=== PATIENT | female | born 1950 | race Caucasian/White ===

== ENCOUNTER 2022-05-08 22:24 | Emergency (ER) | payer MEDICARE, SELFPAY ==
--- NOTE | ~2022-05-08 | CT_ITS ---
EXAMINATION: CT ABDOMEN AND PELVIS WITHOUT CONTRAST CLINICAL INFORMATION: Lower back pain. Left hip pain. COMPARISON: None TECHNIQUE: Multidetector volumetric imaging was performed from the superior aspect of the liver through the pubic symphysis. Sagittal and coronal reformatted images were obtained on the technologist's workstation. This CT examination was performed using dose optimization techniques as appropriate, variously including the following: *Automated exposure control *Adjustment of mA and/or kV according to patient size (this includes techniques or standardized protocols for targeted exams where dose is matched to indication/reason for exam; i.e. extremities or head) *Use of iterative reconstruction technique DLP: 696 mGy-cm FINDINGS: LUNG BASES: The visualized lung bases are unremarkable. LIVER, GALLBLADDER, AND BILIARY TREE: The liver is normal in size, shape, and attenuation. No focal hepatic lesion or biliary ductal dilatation is present. The gallbladder is unremarkable with no evidence of radiopaque gallstones, gallbladder wall thickening, or obvious pericholecystic inflammatory changes. PANCREAS: Unremarkable. SPLEEN: Unremarkable. ADRENAL GLANDS: Normal appearance of the left adrenal gland. The right adrenal gland is not seen. Surgical clips are seen in this area. KIDNEYS AND URETERS: The kidneys are normal in size, shape, and attenuation. No hydronephrosis, hydroureter, or calculi seen. No perinephric stranding. BLADDER: Unremarkable. GASTROINTESTINAL TRACT: The stomach is unremarkable. Normal caliber small bowel. No obstruction. Normal appendix. Colonic diverticulosis which is greatest at the sigmoid colon. No diverticulitis. No free air or free fluid. ABDOMINAL WALL: Evidence of previous right inguinal hernia repair. No abdominal wall hernias seen at this time . LYMPH NODES: Normal. VASCULAR: Normal caliber aorta with mild atherosclerotic calcification. PELVIC VISCERA: Uterus not seen. No adnexal mass. OSSEOUS STRUCTURES: No acute or suspicious osseous abnormality. Total left hip arthroplasty in appropriate positioning without evidence of failure. Mild degenerative change along the pubic symphysis. Transitional anatomy at the lumbosacral junction. There is vacuum disc phenomenon at L5-S1. Mild degenerative changes throughout with small endplate osteophytes. CT/CT abdomen pelvis wo IV con IMPRESSION: 1. No acute findings in the abdomen or pelvis. No inflammatory changes. 2. Colonic diverticulosis without diverticulitis. Fleischner guidelines were followed.
[2022-05-08 22:32] VITALS: BP 156/86; PULSE 82
[2022-05-08 22:38] VITALS: BP 136/73; PULSE 84; RESP 18; TEMP 36.3; O2SAT 97; BMI 31.1
[2022-05-09 00:38] VITALS: BP 143/114; PULSE 64; RESP 19; TEMP 36.8; O2SAT 98
--- NOTE | 2022-05-09 00:39 | ED.EXTPRO ---
HPI - Extremity Problem General Chief complaint: Extremity Problem Stated complaint: Back pain Time Seen by Provider: 05/09/22 00:37 Source: patient Mode of arrival: ambulatory Limitations: no limitations History of Present Illness HPI Narrative: Patient with history of osteoporosis bilateral hip replacement ambulatory without any assistance notice 3 days of pain in left groin area and lower back no history of injury no fall patient has difficulty in getting up from the seat initially now has pain even when she walks no paresthesia no leg weakness no abdominal pain no rash Related Data Previous Rx's Medication Instructions Recorded tramadol 50 mg tablet 50 mg PO Q8H PRN pain #20 tabs 05/09/22 Allergies Allergy/AdvReac Type Severity Reaction Status Date / Time bupropion [From Wellbutrin] Allergy Nausea and Verified 05/08/22 22:44 Vomiting prochlorperazine Allergy Facial Verified 05/08/22 22:43 [From Compazine] Swelling Review of Systems Review of Systems: Yes all other systems are reviewed and are negative [facility] Social History Social History Alcohol intake: never Smoked in Last 30 Days: Yes Use of substances other than those prescribed or required for medical reasons: No Advance Directives: No Physical Exam Vital Signs: Vital Signs: Last Vital Signs Temp 98.2 F 05/09/22 00:38 Pulse 69 05/09/22 03:16 Resp 18 05/09/22 03:16 BP 119/64 05/09/22 03:16 Pulse Ox 97 05/09/22 03:16 O2 Del Method 05/09/22 03:16 BMI result Body Mass Index 31.1 Appearance: Alert. Oriented X3. No acute distress. Eyes: No pallor or icterus ENT: Pharynx normal. Oral Mucosa moist Neck: Normal inspection. Neck supple. CVS: Normal heart rate and rhythm. Pulses normal. Respiratory: No respiratory distress. Equal air entry bilateral, no wheezing/rales/rhonchi Abdomen: Soft and nontender. Bowel sounds are present, no mass palpable, no CVA tenderness Skin: Skin warm and dry. Normal skin color. Normal skin turgor. Extremities: No lower extremity edema. No calf tenderness, hip good range of movement tender in the groin area back: Diffuse tenderness lower lumbar area Neuro: Oriented X 3. No motor deficit. No sensory deficit.No cerebellar signs , cranial nerves II-XII intact Medications Administered Discontinued Medications Generic Name Dose Route Start Last Admin Trade Name Freq PRN Reason Stop Dose Admin Dexamethasone Sodium Phosphate 10 mg 05/09/22 02:58 05/09/22 03:16 Dexamethasone Sod Phosphate 10 Mg/Ml Vial IVPUSH 05/09/22 02:59 10 mg ONCE ONE Administration Ketorolac Tromethamine 30 mg 05/09/22 02:58 05/09/22 03:16 Ketorolac Tromethamine 30 Mg/Ml Vial IVPUSH 05/09/22 02:59 30 mg ONCE ONE Administration Morphine Sulfate 4 mg 05/09/22 00:58 05/09/22 01:27 Morphine Sulfate 4 Mg/Ml Cartridge IVPUSH 05/09/22 00:59 4 mg ONCE ONE Administration Protocol Ondansetron HCl 4 mg 05/09/22 00:58 05/09/22 01:28 Ondansetron Hcl 4 Mg/2 Ml Vial IVPUSH 05/09/22 00:59 4 mg ONCE ONE Administration Medical Decision Making Medical Decision Making MDM Narrative: patient with lower back strain CT scan negative for any acute pathology shows diffuse arthritic changes no signs of spinal cord impingement after pain medication patient was able to ambulate without any assistance we discharged patient home on tramadol Differential Diagnosis compression fracture/ osteoarthritis / diverticulitis Lab Data 05/09/22 01:24 05/09/22 01:24 Labs: Lab Results 05/09/22 05/09/22 Range/Units 01:24 01:24 WBC 6.5 (4.8-10.8) X10*3/uL RBC 4.11 L (4.20-5.50) X10*6/uL Hgb 12.6 (12.0-16.0) g/dl Hct 37.0 (37.0-47.0) % MCV 90.0 (80.0-98.0) fL MCH 30.7 (27.0-33.0) pg MCHC 34.1 (31.0-35.0) g/dl RDW 12.9 (11.0-16.0) % Plt Count 239 (160-400) X10*3/uL MPV 8.6 L (9.4-12.3) fL Immature Gran % (Auto) 0.2 (0.0-0.4) % Neut % (Auto) 62.7 (45-73) % Lymph % (Auto) 28.1 (20-40) % [place]ock % (Auto) 7.1 (2-11) % Eos % (Auto) 1.7 (0-4) % Baso % (Auto) 0.2 (0-2) % Lymph # (Auto) 1.8 (1.2-4.9) X10*3/uL [place] # (Auto) 0.5 (0.1-1.2) X10*3/uL Eos # (Auto) 0.1 (0.0-0.4) X10*3/uL Baso # (Auto) 0.0 (0.0-0.2) X10*3/uL Abs Immat Gran (auto) 0.01 (0.00-0.03) X10*3/uL Absolute Neuts (auto) 4.1 (2.0-8.3) x10*3/uL Absolute Nucleated RBC 0.000 (0.0-0.012) X10*3/uL Nucleated RBC % (auto) 0.0 (0.0-0.2) /100WBC Sodium 141 (135-145) mmol/L Potassium 3.9 (3.3-5.1) mmol/L Chloride 105 (96-108) mmol/L Carbon Dioxide 24 (22-29) mmol/L Anion Gap 16 (12-20) BUN 17 H (9-16) mg/dL Creatinine 0.89 (0.5-1.4) mg/dL Estim Creat Clear Calc 59.7 Estimated GFR > 60 Random Glucose 81 (60-115) mg/dL Calcium 8.9 (8.4-10.2) mg/dL Total Bilirubin 0.4 (0.0-1.0) mg/dL AST 20 (5-31) U/L ALT 14 (0-31) U/L Alkaline Phosphatase 57 (39-117) U/L Total Protein 6.3 L (6.5-8.0) g/dL Albumin 3.9 (3.5-5.0) g/dL Discharge Plan Discharge Clinical Impression: Lumbosacral strain Patient Disposition: Home, Self-Care Instructions: Low Back Strain (ED) Additional Instructions: apply ice pack pain medication as prescribed follow-up with PCP if not better Prescriptions: New tramadol 50 mg tablet 50 mg PO Q8H PRN (Reason: pain) Qty: 20 0RF
[2022-05-09 01:01] VITALS: BP 128/73; PULSE 65; RESP 17; O2SAT 96
[2022-05-09 01:02] VITALS: BP 128/73; PULSE 66; RESP 16; O2SAT 96
[2022-05-09 01:27] VITALS: RESP 18
[2022-05-09] MEDS: Morphine Sulfate 4 MG/ML CARTRIDGE IVPUSH (01:27)
[2022-05-09 01:28] LABS: MANUAL DIFF FLAG NO
[2022-05-09] MEDS: ondansetron HCL 4 MG/2 ML VIAL IVPUSH (01:28)
[2022-05-09 01:29] LABS: Basophils Percent Auto 0.2 % (0-2); Eosinophils Absolute Auto 0.1 X10*3/uL (0.0-0.4); Eosinophils Percent Auto 1.7 % (0-4); Hemoglobin 12.6 g/dl (12.0-16.0); Imm Gran Abs Auto 0.01 X10*3/uL (0.00-0.03); Imm Gran Pct Auto 0.2 % (0.0-0.4); Lymphocytes Absolute Auto 1.8 X10*3/uL (1.2-4.9); Lymphocytes Percent Auto 28.1 % (20-40); Mean Corpuscular HGB Conc 34.1 g/dl (31.0-35.0); Mean Corpuscular Hemoglobin 30.7 pg (27.0-33.0); Mean Platelet Volume 8.6 fL (9.4-12.3); Monocytes Absolute Auto 0.5 X10*3/uL (0.1-1.2); Monocytes Percent Auto 7.1 % (2-11); Neutrophils Absolute Auto 4.1 x10*3/uL (2.0-8.3); Neutrophils Percent Auto 62.7 % (45-73); Platelet Count 239 X10*3/uL (160-400); Red Blood Count 4.11 X10*6/uL (4.20-5.50); Red Cell Distribution Width 12.9 % (11.0-16.0); White Blood Count 6.5 X10*3/uL (4.8-10.8)
[2022-05-09 01:59] LABS: Alanine Aminotransferase 14 U/L (0-31); Albumin Level 3.9 g/dL (3.5-5.0); Alkaline Phosphatase 57 U/L (39-117); Anion Gap 16 (12-20); Aspartate Amino Transferase 20 U/L (5-31); Bilirubin Total 0.4 mg/dL (0.0-1.0); Blood Urea Nitrogen 17 mg/dL (9-16); Calcium 8.9 mg/dL (8.4-10.2); Carbon Dioxide 24 mmol/L (22-29); Chloride 105 mmol/L (96-108); Creatinine Clr Calc Pharmacy 59.7; Estimated Glomerular Filt Rate > 60; Glucose Random 81 mg/dL (60-115); Potassium 3.9 mmol/L (3.3-5.1); Sodium 141 mmol/L (135-145); Total Protein 6.3 g/dL (6.5-8.0)
[2022-05-09 02:24] VITALS: BP 116/68; PULSE 67; RESP 16; O2SAT 92
[2022-05-09 03:16] VITALS: BP 119/64; PULSE 69; RESP 18; O2SAT 97
[2022-05-09] MEDS: Ketorolac Tromethamine 30 MG/ML VIAL IVPUSH (03:16)
[2022-05-09] MEDS: dexAMETHasone sod phosphate 10 MG/ML VIAL IVPUSH (03:16)
--- NOTE | 2022-05-09 03:25 | PC.NURSE ---
PT A&Ox4, reports increasing L hip pain x 3 days, worsening with sitting and getting up. PT denies any trauma/injury. IV line placed, meds given as documented. PT ambulated independently to BR with steady gait.
--- NOTE | 2022-05-09 04:10 | PC.NURSE ---
This RN at bedside for discharge. Pt reporting urinary symptoms including burning and discomfort. MD aware, UA ordered and sent. Plan to await results prior to discharge.
[2022-05-09 04:13] LABS: Appearance Urine Clear; Color Urine Yellow; Glucose Urine UA Negative (Negative); Leukocyte Esterase Urine Negative (Negative); Nitrite Urine Negative (Negative); PH 5.5 (5.0-9.0); Specific Gravity - Urine <= 1.005 (1.005-1.025); Urine Blood Negative (Negative); Urine Ketones Negative (Negative); Urine Protein Negative (Neg-Trace)
== END 2022-05-09 04:30 | disposition home or self-care (01) ==
PROVIDERS: Emergency Provider Internal Medicine; PCP Nurse Practitioner Adult Health
DX: S39.012A Strain of muscle, fascia and tendon of lower back, initial encounter (principal); X58.XXXA Exposure to other specified factors, initial encounter; M25.552 Pain in left hip; Y93.9 Activity, unspecified; Y92.9 Unspecified place or not applicable; Y99.9 Unspecified external cause status
CPT/HCPCS: 36415; 74176; 80053; 81003; 85025; 96374; 96375; 99284; 99285; J1100; J1885; J2270; J2405

== ENCOUNTER 2022-11-18 19:09 | Emergency (ER) | payer MEDICARE, SELFPAY ==
--- NOTE | 2022-11-18 19:14 | ED_ITS ---
HPI - Animal Bite General Chief Complaint: Animal Bite Stated Complaint: Bite to finger by cow Time Seen by Provider: 11/18/22 19:35 Source: patient Mode of arrival: ambulatory Limitations: no limitations History of Present Illness HPI narrative: Patient is a 72-year-old female who presents to emergency department for evaluation of right 4th digit was bit by a cow prior to arrival. Reports that the bite was painful, she is able to fully flex and extend the digit. she has a superficial bite to the distal tip on the palmar surface. Date of last tetanus vaccination is unknown. Expresses concern as she is unaware whether cattle at the farm are vaccinated for rabies. Nursing staff contacted the farm, the cattle are too young to have been vaccinated. Related Data Previous Rx's Medication Instructions Recorded tramadol 50 mg tablet 50 mg PO Q8H PRN pain #20 tabs 05/09/22 amoxicillin 875 mg-potassium 1 tab PO BID #13 tabs 11/18/22 clavulanate 125 mg tablet Allergies Allergy/AdvReac Type Severity Reaction Status Date / Time bupropion [From Wellbutrin] Allergy Nausea and Verified 05/08/22 22:44 Vomiting prochlorperazine Allergy Facial Verified 05/08/22 22:43 [From Compazine] Swelling diphenhydramine AdvReac Agitated Verified 11/18/22 19:14 [From Benadryl] Review of Systems Review of Systems: Yes all other systems are reviewed and are negative [facility] Past Medical History Attestation statement: The following information was validated with the patient. Source: old records reviewed Social History Social History Alcohol intake: never Advance Directives: No Advance Directives Information Provided: No Physical Exam ED Vital Signs: Vital Signs - 24 hr 11/18/22 19:15 Temperature 96.8 F Pulse Rate 81 Respiratory Rate 18 Blood Pressure 139/85 Pulse Oximetry 96 Oxygen Delivery Method Room Air BMI result Body Mass Index 30.8 Appearance: Alert.?Oriented to person, place and time. No acute distress.?Normal affect. Neck: Normal inspection.? Neck supple.?? CVS: Heart sounds normal. Normal heart rate and rhythm.? Pulses normal.?? Respiratory: No respiratory distress.? Lung sounds clear to auscultation bilaterally?? Abdomen: Soft and non-tender. Normoactive bowel sounds. No pulsatile mass.?? Skin: Skin warm and dry.? Normal skin color.? Superficial bite to distal tip of right 4th digit without active bleeding or surrounding erythema Extremities: No lower extremity edema.? Neuro: Moves all extremities spontaneously. Sensation intact bilaterally. . No focal neuro deficits. Ambulates with normal steady gait. Medications Administered Discontinued Medications Generic Name Dose Route Start Last Admin Trade Name Ismaelq PRN Reason Stop Dose Admin Amoxicillin/Clavulanate Potassium 875 mg 11/18/22 19:35 11/18/22 19:45 Amoxicillin/Potassium Clav 875 Mg Tablet PO 11/18/22 19:36 875 mg ONCE ONE Administration Diphtheria/Tetanus/Acell Pertussis 0.5 ml 11/18/22 19:35 11/18/22 19:46 Diphth,Pertus(Acell),Tet Adult 0.5 Ml Syringe IM 11/18/22 19:36 0.5 ml .ONCE ONE Administration Medical Decision Making Medical Decision Making MDM Narrative: Patient is a 72-year-old female presents emergency department for evaluation of a cattle bite to the right 4th digit distal tip. The extremity is neurovascularly intact. Full AROM to the digit, unlikely to have osseous involvement/tendon or ligament injury. Bite is superficial, without surrounding erythema or warmth. No indication for suture for skin adhesive closure. Tdap was updated, incidence of rabies from livestock is minimal, per up-to-date, no incidence of rabies from livestock bite in [place] no indication for rabies vaccination, received 1st dose of prophylactic Augmentin in the emergency department. Discussed worrisome signs and symptoms that would warrant re- evaluation, advised outpatient follow-up with primary care provider as needed. All questions answered. Stable for discharge. Differential Diagnosis Differential Diagnoses: The differential diagnosis associated with the presentation includes (As noted above) Independent Historian Clinical information obtained from an independent historian. History obtained from or confirmed by: Friend (Who confirms history) Tests considered The following testing was considered but not selected: Considered XR imaging, after physical examination low suspicion for osseous abnormality, XR imaging was deferred Prescription Management I considered prescription management with: Antibiotic Discharge Plan Discharge Clinical Impression: Bite by animal Patient Disposition: Home, Self-Care Additional Instructions: Complete the entire course of antibiotics as prescribed, you received the first dose in the emergency department, you may begin taking this at home tomorrow morning. Clean the wound twice daily with warm water and mild non scented soap. As discussed, if you begin to notice redness, swelling, pus-like drainage, inability to bend the finger, fevers, chills than he should have this re- evaluated. Please follow-up with your primary care provider as needed. Your tetanus vaccine was updated today. As mentioned the incidence of the cattle having rabies is very minimal, and of note there have been no human cases in the [place] of rabies associated with bites from livestock, there was no indication for rabies vaccination today. Prescriptions: New amoxicillin-pot clavulanate 875-125 mg tablet 1 tab PO BID Qty: 13 0RF No Action tramadol 50 mg tablet 50 mg PO Q8H PRN (Reason: pain) Qty: 20 0RF Referrals: Alina Rowland NP [Primary Care Provider] - Discharge Date/Time: 11/18/22 19:55
[2022-11-18 19:15] VITALS: BP 139/85; PULSE 81; RESP 18; TEMP 36; O2SAT 96; BMI 30.8
[2022-11-18] MEDS: Amoxicillin/Potassium Clav 875 MG TABLET PO (19:45)
[2022-11-18] MEDS: Diphth,Pertus(ACell),Tet Adult 0.5 ML SYRINGE IM (19:46)
== END 2022-11-18 19:55 | disposition home or self-care (01) ==
PROVIDERS: Emergency Provider Emergency Medicine; PCP Nurse Practitioner Adult Health
DX: S60.474A Other superficial bite of right ring finger, initial encounter (principal); W55.21XA Bitten by cow, initial encounter; Y93.9 Activity, unspecified; Y92.9 Unspecified place or not applicable; Y99.9 Unspecified external cause status
CPT/HCPCS: 90471; 90715; 99282; 99283

== ENCOUNTER 2023-05-23 21:30 | Emergency (ER) | payer MEDICARE, SELFPAY ==
[2023-05-23 21:33] VITALS: BP 140/90; PULSE 90; RESP 18; TEMP 36.3; O2SAT 97; BMI 31.8
[2023-05-23 22:12] LABS: MANUAL DIFF FLAG NO
[2023-05-23 22:19] LABS: Basophils Percent Auto 0.3 % (0-2); Eosinophils Absolute Auto 0.1 X10*3/uL (0.0-0.4); Eosinophils Percent Auto 0.8 % (0-4); Hematocrit 37.8 % (37.0-47.0); Imm Gran Abs Auto 0.05 X10*3/uL (0.00-0.03); Imm Gran Pct Auto 0.7 % (0.0-0.4); Lymphocytes Absolute Auto 1.4 X10*3/uL (1.2-4.9); Mean Corpuscular HGB Conc 34.4 g/dl (31.0-35.0); Mean Corpuscular Hemoglobin 31.1 pg (27.0-33.0); Mean Corpuscular Volume 90.4 fL (80.0-98.0); Mean Platelet Volume 8.3 fL (9.4-12.3); Monocytes Absolute Auto 0.4 X10*3/uL (0.1-1.2); Monocytes Percent Auto 5.3 % (2-11); Neutrophils Absolute Auto 5.4 x10*3/uL (2.0-8.3); Neutrophils Percent Auto 73.9 % (45-73); Platelet Count 278 X10*3/uL (160-400); Red Blood Count 4.18 X10*6/uL (4.20-5.50); Red Cell Distribution Width 13.3 % (11.0-16.0); White Blood Count 7.3 X10*3/uL (4.8-10.8)
[2023-05-23 22:26] LABS: Alanine Aminotransferase 11 U/L (0-31); Albumin Level 4.3 g/dL (3.5-5.0); Alkaline Phosphatase 60 U/L (39-117); Anion Gap 17 (12-20); Aspartate Amino Transferase 13 U/L (5-31); Bilirubin Total 0.2 mg/dL (0.0-1.0); Blood Urea Nitrogen 12 mg/dL (9-16); Calcium 9.7 mg/dL (8.4-10.2); Carbon Dioxide 25 mmol/L (22-29); Chloride 106 mmol/L (96-108); Creatinine Clr Calc Pharmacy 57.5; Estimated Glomerular Filt Rate > 60; Glucose Random 94 mg/dL (60-115); Potassium 3.5 mmol/L (3.3-5.1); Sodium 144 mmol/L (135-145); Total Protein 7.3 g/dL (6.5-8.0)
[2023-05-23 23:36] VITALS: BP 120/61; PULSE 69; RESP 16; TEMP 36.5; O2SAT 97
--- NOTE | 2023-05-24 02:12 | ED.SKABFB ---
HPI - Skin/Abscess/Foreign Bdy General Chief complaint: Skin/Abscess/Foreign Body Stated complaint: blood poisoning, L side of neck swollen Time Seen by Provider: 05/24/23 01:25 Source: patient and family Mode of arrival: ambulatory History of Present Illness HPI narrative: This is a 72-year-old female who has a longstanding history of lichen sclerosis and states that occasionally she does develop a cellulitis especially when she has been scratching and states that for the past 24-48 hours she is noticed increased redness and swelling around 2 areas on her bilateral shoulders with involvement of lymph nodes. Related Data Previous Rx's Medication Instructions Recorded tramadol 50 mg tablet 50 mg PO Q8H PRN pain #20 tabs 05/09/22 amoxicillin 875 mg-potassium 1 tab PO BID #13 tabs 11/18/22 clavulanate 125 mg tablet cephalexin 500 mg capsule 500 mg PO BID 5 days #10 caps 05/24/23 doxycycline hyclate 100 mg capsule 100 mg PO BID 5 days #10 caps 05/24/23 Allergies Allergy/AdvReac Type Severity Reaction Status Date / Time bupropion [From Wellbutrin] Allergy Nausea and Verified 05/23/23 21:33 Vomiting prochlorperazine Allergy Facial Verified 05/23/23 21:33 [From Compazine] Swelling diphenhydramine AdvReac Agitated Verified 05/23/23 21:33 [From Benadryl] Review of Systems Review of Systems: Pertinent positives and negatives as stated in HPI PMFSH Past Medical History Source: nursing notes reviewed Social History Social History Alcohol intake: never Advance Directives: No Advance Directives Information Provided: No Physical Exam Vital Signs: Vital Signs: Last Vital Signs Temp 98.4 F 05/24/23 02:15 Pulse 68 05/24/23 02:15 Resp 16 05/24/23 02:15 BP 133/76 05/24/23 02:15 Pulse Ox 98 05/24/23 02:15 O2 Del Method Room Air 05/24/23 02:15 BMI result Body Mass Index 31.8 VITAL SIGNS: Reviewed. GENERAL: Well developed, well nourished, in no acute distress. HEAD: Normocephalic/atraumatic EYES: PERRLA, EOMI EARS: Ext canals without abnormality NOSE: Nares patent bilateral OROPHARYNX: no oral lesions noted, posterior pharynx clear NECK: Supple, no adenopathy LUNGS: Normal breath sounds. No adventitious sounds or accessory muscle use. SpO2<98> CARDIOVASCULAR: Regular rate and rhythm without noted murmurs ABDOMEN: Soft, non-tender, non-distended with bowel sounds. MUSCULOSKELETAL: No tenderness, deformities, or effusions noted on gross inspection. EXTREMITIES: No cyanosis, clubbing or edema. RIGHT SHOULDER: There is an area of erythema and swelling surrounding a location of the lichen sclerosis that is clearly been scratched at, there are also 2 other sites on the LEFT SHOULDER with palpable adenopathy. SKIN: Inspection of the skin reveals no rashes NEUROLOGIC: Alert and oriented x 4. Strength and sensation to light touch were grossly intact x 4. Medications Administered Discontinued Medications Generic Name Dose Route Start Last Admin Trade Name Freq PRN Reason Stop Dose Admin Cephalexin HCl 500 mg 05/24/23 02:21 05/24/23 02:29 Cephalexin 500 Mg Capsule PO 05/24/23 02:22 500 mg ONCE ONE Administration Doxycycline Monohydrate 100 mg 05/24/23 02:21 05/24/23 02:29 Doxycycline Monohydrate 100 Mg Capsule PO 05/24/23 02:22 100 mg ONCE ONE Administration Medical Decision Making Medical Decision Making [facility] Narrative: 72-year-old female with history and clinical presentation most consistent with superimposed bacterial infection likely secondary to patient's scratching the multiple areas. I reviewed all investigations and hematologic indices do not demonstrate a leukocytosis, there is a left shift but patient is afebrile and there is no evidence of anemia or thrombocytopenia. Chemistry indices are grossly within normal limits without any noted derangements. Patient received initial antibiotics here in the emergency room and was discharged with remaining prescription and instructions to follow-up with her primary care doctor. Differential Diagnosis Differential Diagnoses: The differential diagnosis associated with the presentation includes Please see the discussion above Admission/Observation Consideration of admission/observation: Escalation of care including admission/observation considered Please see the discussion above Lab Data [facility] Lab Attestation statement: I reviewed the patient's lab results. Please see the discussion above 05/23/23 22:07 05/23/23 22:07 Labs: Lab Results 05/23/23 Range/Units 22:07 WBC 7.3 (4.8-10.8) X10*3/uL RBC 4.18 L (4.20-5.50) X10*6/uL Hgb 13.0 (12.0-16.0) g/dl Hct 37.8 (37.0-47.0) % MCV 90.4 (80.0-98.0) fL MCH 31.1 (27.0-33.0) pg MCHC 34.4 (31.0-35.0) g/dl RDW 13.3 (11.0-16.0) % Plt Count 278 (160-400) X10*3/uL MPV 8.3 L (9.4-12.3) fL Immature Gran % (Auto) 0.7 H (0.0-0.4) % Neut % (Auto) 73.9 H (45-73) % Lymph % (Auto) 19.0 L (20-40) % [place]ay % (Auto) 5.3 (2-11) % Eos % (Auto) 0.8 (0-4) % Baso % (Auto) 0.3 (0-2) % Lymph # (Auto) 1.4 (1.2-4.9) X10*3/uL [place] # (Auto) 0.4 (0.1-1.2) X10*3/uL Eos # (Auto) 0.1 (0.0-0.4) X10*3/uL Baso # (Auto) 0.0 (0.0-0.2) X10*3/uL Abs Immat Gran (auto) 0.05 H (0.00-0.03) X10*3/uL Absolute Neuts (auto) 5.4 (2.0-8.3) x10*3/uL Absolute Nucleated RBC 0.000 (0.0-0.012) X10*3/uL Nucleated RBC % (auto) 0.0 (0.0-0.2) /100WBC Sodium 144 (135-145) mmol/L Potassium 3.5 (3.3-5.1) mmol/L Chloride 106 (96-108) mmol/L Carbon Dioxide 25 (22-29) mmol/L Anion Gap 17 (12-20) BUN 12 (9-16) mg/dL Creatinine 0.92 (0.5-1.4) mg/dL Estim Creat Clear Calc 57.5 Estimated GFR > 60 Random Glucose 94 (60-115) mg/dL Calcium 9.7 D (8.4-10.2) mg/dL Total Bilirubin 0.2 (0.0-1.0) mg/dL AST 13 (5-31) U/L ALT 11 (0-31) U/L Alkaline Phosphatase 60 (39-117) U/L Total Protein 7.3 (6.5-8.0) g/dL Albumin 4.3 (3.5-5.0) g/dL External Record Review External record reviewed: Outpatient record and Prior outpatient labs Critical Care Time Critical Care Time Critical Care Time: Yes Total Critical Care Time: 30 Attestation: I personally attest to this time spent taking care of the patient. Discharge Plan Discharge Clinical Impression: Cellulitis Patient Disposition: Home, Self-Care Instructions: Cellulitis (ED) Additional Instructions: 1. Please complete the entire course of antibiotics as prescribed. 2. Please follow-up with your primary care doctor 1st thing in the morning. Return to the ER for any worsening symptoms. Prescriptions: New doxycycline hyclate 100 mg capsule 100 mg PO BID 5 Days Qty: 10 0RF cephalexin 500 mg capsule 500 mg PO BID 5 Days Qty: 10 0RF No Action tramadol 50 mg tablet 50 mg PO Q8H PRN (Reason: pain) Qty: 20 0RF amoxicillin-pot clavulanate 875-125 mg tablet 1 tab PO BID Qty: 13 0RF Referrals: Alina Rowland NP [Primary Care Provider] - Interventions: ED Discharge Assessment Last Done: 05/24/23 04:08 Discharge Date/Time: 05/24/23 02:35
[2023-05-24 02:15] VITALS: BP 133/76; PULSE 68; RESP 16; TEMP 36.9; O2SAT 98
[2023-05-24] MEDS: cephALEXin 500 MG CAPSULE PO (02:29)
[2023-05-24] MEDS: Doxycycline Monohydrate 100 MG CAPSULE PO (02:29)
== END 2023-05-24 02:35 | disposition home or self-care (01) ==
PROVIDERS: Emergency Provider Student in an Organized Health Care Education/Training Program; PCP Nurse Practitioner Adult Health
DX: L03.221 Cellulitis of neck (principal); L90.0 Lichen sclerosus et atrophicus
CPT/HCPCS: 36415; 80053; 85025; 99283

== ENCOUNTER 2024-05-25 13:21 | Outpatient (AMB) | payer MEDICARE, SELFPAY ==
--- NOTE | 2024-05-25 13:27 | MHC.OFFVIS ---
Vital Signs 05/25/24 13:44 Weight 178 lb Pulse 89 Pulse Source Pulse Oximeter Temp 97.9 F Temp Source Oral Pulse Oximetry (%) 96 Oxygen Delivery Method Room Air Intake Visit Reasons: /gavino simplex gómez Allergies bupropion [From Wellbutrin] Allergy (Verified 05/25/24 13:56) Nausea and Vomiting prochlorperazine [From Compazine] Allergy (Verified 05/25/24 13:56) Facial Swelling diphenhydramine [From Benadryl] Adverse Reaction (Verified 05/25/24 13:56) Agitated compazine Allergy (Severe, Uncoded 05/25/24 13:56) Unknown HPI HPI /gavino sanchez chronicus: Details: She has spontaneous lesions of open ulcers on abdomen and legs for 30 years. She denies scratching at skin or MRSA. She was diagnosed with lichen planus and prurigo nodularis in [place]. [facility] Medical History (Updated 05/26/24 @ 22:27 by Mayra Pugh MD) Skin rash Social History Alcohol intake: never Review of Systems Const All systems reviewed & are unremarkable except as noted in HPI and below Physical Exam Vital Signs: Last Vital Signs Temp 97.9 F 05/25/24 13:44 Pulse 89 05/25/24 13:44 Pulse Ox 96 05/25/24 13:44 Oxygen Delivery Method Room Air 05/25/24 13:44 Const Other: General: cooperative Orientation/consciousness: patient oriented x3 HEENT Head: Yes normal to inspection Mouth: Normal oral and palatal mucosa present Eyes General: appearance normal, both eyes and all related structures Pupils: Equal, round and reactive pupils present Resp Effort & Inspection: normal respiratory effort Cardio Rate: regular rate Rhythm: regular rhythm GI Palpation (GI): Soft to palpation and nontender General: Yes no CVA tenderness Back/Spine/Pelvis Back: no CVA tenderness Skin Other: open lesions ,no extension of area,no cellulitis Neuro General: patient oriented x3 Cranial nerves: Yes CN's II-XII intact bilaterally and Yes Equal, round and reactive pupils present Extrem General: Yes normal to inspection Psych Appearance: grossly normal Assessment & Plan Assessment & Plan (1) Skin rash: Comment: No infection seen today. Code(s): R21 - Rash and other nonspecific skin eruption Category: Medical Plan: Follow with Dermatology. Medications: Discontinued tramadol Discontinued Reason: Patient no longer taking 50 mg PO Q8H PRN 20 tabs 0RF pain amoxicillin-pot clavulanate 875-125 mg Discontinued Reason: Patient no longer taking 1 tab PO BID 13 tabs 0RF doxycycline hyclate Discontinued Reason: Patient no longer taking 100 mg PO BID 5 days 10 caps 0RF cephalexin Discontinued Reason: Patient no longer taking 500 mg PO BID 5 days 10 caps 0RF Coding Level of Care Code New Pt Level 3 (22072) Diagnoses Skin rash R21
[2024-05-25 13:44] VITALS: PULSE 89; TEMP 36.6; O2SAT 96
== END 2024-05-25 14:01 | disposition home or self-care (01) ==
PROVIDERS: PCP Nurse Practitioner Adult Health; Visit Provider Internal Medicine
DX: R21 Rash and other nonspecific skin eruption (principal)
CPT/HCPCS: 99203

== ENCOUNTER → 2024-05-25 13:21 | Outpatient (BNVA) | payer MEDICARE, SELFPAY | PROVIDERS: PCP Nurse Practitioner Adult Health; Visit Provider Internal Medicine | DX: R21 Rash and other nonspecific skin eruption (principal) | CPT/HCPCS: 99202 ==

== ENCOUNTER 2024-10-07 13:28 | Outpatient (AMB) | payer MEDICARE, SELFPAY ==
--- NOTE | 2024-10-07 13:31 | MHC.PC.OV ---
Vital Signs 10/07/24 13:36 Height 5 ft 2.44 in Weight 174 lb 8 oz BMI 31.5 BP 114/57 L Blood Pressure Location Rt brachial Position Sitting Respiration 20 Pulse 77 Pulse Source Pulse Oximeter Temp 97.2 F Temp Source Temporal Artery Scan Pulse Oximetry (%) 96 Oxygen Delivery Method Room Air Intake Visit Reasons: Establish Care Hourly Shift Required: No Accompanied by: Self / Same As Patient Allergies bupropion (From Wellbutrin) Allergy (Verified 10/07/24 14:05) Nausea and Vomiting prochlorperazine (From Compazine) Allergy (Verified 10/07/24 14:05) Facial Swelling diphenhydramine (From Benadryl) Adverse Reaction (Verified 10/07/24 14:05) Agitated compazine Allergy (Severe, Uncoded 10/07/24 14:05) Unknown alive Allergy (Mild, Uncoded 10/07/24 14:05) pain Medication List - Last Reconciled 10/07/24 by Jane Rodriguez PA-C clonazepam 1 mg PO DAILY clonazepam 0.5 mg PO BID PRN gabapentin 300 mg PO DAILY losartan-hydrochlorothiazide 100-25 mg 1 tab PO DAILY potassium chloride ER 10 mEq PO DAILY pravastatin 10 mg PO DAILY trazodone 100 mg PO BEDTIME PRN Tobacco use date assessed: 10/07/24 Fall risk assessment: 1 Fall in past year Last assessed Fall Risk: 10/07/24 Dental Screening Dental Screen Date: 10/07/24 Did you have a dental visit in the last 12 months?: Yes Did you have a dental problem in the last 6 months where you did not have access to dental care?: No Was dental information given to patient?: Patient has dentist HPI Establish Care HPI Details The patient is a 74-year-old female presenting for a Annual Physical exam visit and management of chronic conditions. The patient has a history of anxiety disorder, for which she is prescribed clonazepam by her psychiatrist, Dr. Gamble. She also takes trazodone for insomnia, which is managed by the same psychiatrist. The patient has been diagnosed with hypertension and is currently on a combination of losartan and hydrochlorothiazide. She also takes potassium chloride due to a history of hypokalemia, which was discovered during a previous hospitalization. The patient has a history of hyperlipidemia and is on pravastatin for cholesterol management. She reports symptoms consistent with irritable bowel syndrome, including alternating constipation and diarrhea, but denies any black or bloody stools or unintentional weight loss. She has not had a colonoscopy and is being referred to a remotely piloted vehicle controller for further evaluation. The patient has a history of lichen sclerosus, which she describes as bothersome but unchanged. 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 The patient reports peripheral neuropathy symptoms, including numbness and coldness in her feet, which she attributes to vascular issues. She has a family history of arterial disease and is concerned about her own vascular health. The patient has a significant smoking history, having smoked for approximately 50 years before quitting three years ago. She is scheduled for a mammogram and has been advised to undergo a colonoscopy as part of her preventative care. 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 - Family Status: Lives alone but has strong family support, particularly from her daughter who manages her medications. - Smoking History: Smoked for approximately 50 years, quit three years ago. [facility] Medical History (Updated 10/07/24 @ 14:57 by Jane Rodriguez PA-C) Encounter for preventive care Arterial disease Peripheral neuropathy Rushing's neuroma Lichen sclerosus IBS (irritable bowel syndrome) Hypokalemia Varicose veins with pain History of nicotine use Screening for lung cancer Insomnia Pure hypercholesterolemia, unspecified Hypertension Establishing care with new doctor, encounter for Anxiety and depression Skin rash Family History Father Diabetes Prostate cancer Bone cancer Mother Brain cancer Social History Housing: Apartment Alcohol intake: current Alcohol intake frequency: holidays/special occasions only Alcohol type: hard liquor Patient Tobacco Use Status: Former Tobacco user e-Cigarette/Vaping Use: Currently Using service: No Current occupational status: disabled Cognitive needs: No Hearing needs: No Vision needs: Yes (rx glasses) Questionnaire PHQ-9 Over the last 2 weeks, how often have you been bothered by any of the following problems? 1. Little interest or pleasure in doing things: not at all 2. Feeling down, depressed, or hopeless: not at all 3. Trouble falling or staying asleep, or sleeping too much: not at all 4. Feeling tired or having little energy: not at all 5. Poor appetite or overeating: not at all 6. Feeling bad about yourself - or that you are a failure or have let yourself or your family down: not at all 7. Trouble concentrating on things, such as reading the newspaper or watching television: not at all 8. Moving or speaking so slowly that other people could have noticed. Or the opposite - being so fidgety or restless that you have been moving around a lot more than usual: not at all 9. Thoughts that you would be better off or of hurting yourself in some way: not at all Total score: 0 Depression Screening Interpretation: Negative Depression Screening Done: Yes 97718 - PHQ-9 Billing: Yes Source: Developed by Drs. Leandro Stone, Katherine Dubois, Shady Watson and colleagues, with an educational renea from [employer]. Thrive Questionnaire Date Thrive assessed: 10/07/24 I am a: Patient What is your living situation today?: I have a steady place to live Within the past 12 months, did the food you bought not last and you didn't have the money to get more?: Never true Within the past 12 months, did you worry whether your food would run out before you got money to buy more?: Never true Do you have trouble paying for medicines?: No Do you have trouble getting transportation to medical appointments?: No Do you have trouble paying your heating and electricity bill?: No Do you have trouble taking care of your child, family member or friend?: No Do you have trouble with day-to-day activities such as bathing, preparing meals, shopping, managing finances, etc.?: No Are you currently unemployed and looking for a job?: No Are you interested in more education?: No Please select the resources that you would like help with: None Currently or been in a relationship where the following occur: No concerns reported THRIVE Score: 0 AUDIT C Alcohol Use Questionnaire (AUDIT-C) 1. How often do you have a drink containing alcohol?: Monthly or less 2. How many drinks containing alcohol do you have on a typical day when you are drinking?: 1 or 2 3. How often do you have six or more drinks on one occasion?: Never Total Score: 1 Score Reviewed/Action Taken: No MAHSA-7 AMB Questionnaire MAHSA-7 Date MAHSA - 7 assessed: 10/07/24 Feeling nervous, anxious, or on edge: 0 = Not at all Not being able to stop or control worryin = Not at all Worrying too much about different things: 0 = Not at all Trouble relaxin = Not at all Being so restless that it is hard to sit still: 0 = Not at all Becoming easily annoyed or irritable: 0 = Not at all Feeling afraid as if something awful might happen: 0 = Not at all Total MAHSA-7 score (0-4 normal; 5-9 mild; 10-14 moderate; 15-21 severe): 0 Source: Developed by Drs. Leandro Stone, Katherine Dubois, Shady Watson and colleagues, with an educational renea from [employer]. MAHSA-7 Assessment Billing MAHSA-7 Assessment Tool: MAHSA-7 Assessment 90344 Review of Systems Const Details: - Cardiovascular: Denies chest pain or shortness of breath. - Gastrointestinal: Reports alternating constipation and diarrhea; denies black or bloody stools, denies unintentional weight loss. - Neurological: Reports numbness and coldness in feet, denies headaches or dizziness. - Dermatological: Reports lichen sclerosus, unchanged. Physical exam (Primary Care) Vital Signs: Last Vital Signs Temp 97.2 F 10/07/24 13:36 Pulse 77 10/07/24 13:36 Resp 20 10/07/24 13:36 BP 114/57 L 10/07/24 13:36 Pulse Ox 96 10/07/24 13:36 Oxygen Delivery Method Room Air 10/07/24 13:36 Care Plan Goal for BP management: <140/90 at Goal BMI result Body Mass Index 31.5 BMI Assessment/Plan discussion: High BMI High, discussed plan: lifestyle, weight reduction, dietary, physical activity and alcohol moderation Tobacco/Smoking Status: Tobacco use Status Tobacco use date assessed 10/07/24 10/07/24 13:36 Patient Tobacco Use Status Former Tobacco user 10/07/24 13:58 e-Cigarette/Vaping Use Currently Using 10/07/24 13:58 PHQ-9: PHQ-9 Score PHQ-9: Total score 0 10/07/24 14:02 Depression Screening Interpretation: Negative Thrive Assessment: Date of Thrive Assessment Date Thrive assessed 10/07/24 10/07/24 13:36 Currently or been in a relationship where the following occur: No concerns reported Const Other: Appearance: Alert. Oriented X3. No acute distress. Head: Normal external exam. Normocephalic. Atraumatic. Eyes: Pupils are equal, round, and reactive to light. Extraocular movements intact. Conjunctiva and sclera normal. Eyelids normal. Ears: External auditory canal normal. Tympanic membranes normal. Throat: Pharynx normal. Uvula midline. Moist mucous membranes. Neck: Normal inspection. Neck supple. Full range of motion. No adenopathy. Thyroid Normal. No meningeal signs. No neck mass noted. Cardiovascular: Normal heart rate and rhythm. Heart sound normal. No murmurs noted. Pulses normal throughout. Respiratory: No respiratory distress. Painless inspiration. Breath sounds normal. No wheezes/rales/rhonchi noted. Chest nontender. No accessory muscle usage noted or decreased air movement noted. Abdomen: Soft and nontender. Bowel sounds normal in all 4 quadrants. No distention noted. No organomegaly noted. No visible injury noted. Back: No costovertebral angle tenderness. Full range of motion noted. Skin: Skin warm and dry. Normal skin color. Normal skin turgor. Lichen symptoms noted. Otherwise no additional rashes or lesions noted. Extremities: No lower extremity edema. Extremities exhibit normal range of motion. Feet pain noted with prolonged standing, numbness, and cold sensation at night. Patient noted to have varicose veins. No pitting edema is noted. Neuro: Oriented X 3. No motor deficit. No sensory deficit. Reflexes normal. Coding Level of Care Code New Pt Level 5 (38737) New Pt Prev Care 40-64y(70217) Diagnoses Establishing care with new doctor, encounter for Z76.89 Anxiety and depression F41.9; F32.A Hypertension I10 Pure hypercholesterolemia, unspecified E78.00 Insomnia G47.00 Hypokalemia E87.6 IBS (irritable bowel syndrome) K58.9 Lichen sclerosus L90.0 Rushing's neuroma G57.60 Peripheral neuropathy G62.9 Arterial disease I77.9 History of nicotine use Z87.891 Encounter for preventive care Z00.00 Varicose veins with pain I83.819 Additional Codes PHQ-9 - 78203 - PHQ-9 Billing: Yes ([id number]) MAHSA-7 Assessment Billing - MAHSA-7 Assessment Tool: MAHSA-7 Assessment 46262 ([id number]) Time Spent (min) 50 Assessment & Plan Assessment & Plan (1) Establishing care with new doctor, encounter for: Code(s): Z76.89 - Persons encountering health services in other specified circumstances Category: Medical (2) Anxiety and depression: Code(s): F41.9 - Anxiety disorder, unspecified; F32.A - Depression, unspecified Category: Medical Plan: The patient is currently managed with clonazepam prescribed by her psychiatrist, Dr. Gamble. (3) Hypertension: Code(s): I10 - Essential (primary) hypertension Category: Medical Plan: The patient is on a combination of losartan and hydrochlorothiazide for blood pressure management. (4) Pure hypercholesterolemia, unspecified: Code(s): E78.00 - Pure hypercholesterolemia, unspecified Category: Medical Plan: The patient is on pravastatin for cholesterol management. (5) Insomnia: Code(s): G47.00 - Insomnia, unspecified Category: Medical Plan: The patient is managed with trazodone for insomnia, under the care of her psychiatrist. (6) Hypokalemia: Code(s): E87.6 - Hypokalemia Category: Medical Plan: The patient takes potassium chloride daily due to a history of low potassium levels identified during a previous hospitalization. (7) IBS (irritable bowel syndrome): Code(s): K58.9 - Irritable bowel syndrome, unspecified Category: Medical Plan: The patient reports symptoms of IBS and is being referred to a remotely piloted vehicle controller for further evaluation. (8) Lichen sclerosus: Code(s): L90.0 - Lichen sclerosus et atrophicus Category: Medical Plan: The patient reports lichen sclerosus as unchanged and bothersome. (9) Rushing's neuroma: Code(s): G57.60 - Lesion of plantar nerve, unspecified lower limb Category: Medical Plan: The patient has undergone surgery for Rushing's neuroma in the past. (10) Peripheral neuropathy: Code(s): G62.9 - Polyneuropathy, unspecified Category: Medical Plan: The patient reports symptoms of peripheral neuropathy, including numbness and coldness in her feet, and is concerned about vascular health. (11) Arterial disease: Code(s): I77.9 - Disorder of arteries and arterioles, unspecified Category: Medical Plan: The patient has a family history of arterial disease and is being referred to a vascular surgeon for evaluation. (12) History of nicotine use: Comment: Smoked for 50 years about 2ppd, Quit 3 years ago, Code(s): Z87.891 - Personal history of nicotine dependence Category: Medical Plan: The patient has a significant smoking history, having smoked for approximately 50 years before quitting three years ago. (13) Encounter for preventive care: Code(s): Z00.00 - Encounter for general adult medical examination without abnormal findings Category: Medical Plan: The patient is scheduled for a mammogram and has been advised to undergo a colonoscopy as part of her preventative care. (14) Varicose veins with pain: Code(s): I83.819 - Varicose veins of unspecified lower extremity with pain Category: Medical Plan: Will refer to vascular surgery. Condition is chronic and stable continue to monitor. Plan Plan Patient was informed and verbally consented to the use of an ambient scribe for clinic note documentation during this visit. 1. Anxiety Disorder The patient is currently managed with clonazepam prescribed by her psychiatrist, Dr. Gamble. 2. Insomnia The patient is managed with trazodone for insomnia, under the care of her psychiatrist. 3. Hypertension The patient is on a combination of losartan and hydrochlorothiazide for blood pressure management. 4. Hypokalemia The patient takes potassium chloride daily due to a history of low potassium levels identified during a previous hospitalization. 5. Hyperlipidemia The patient is on pravastatin for cholesterol management. 6. Irritable Bowel Syndrome (Ibs) The patient reports symptoms of IBS and is being referred to a remotely piloted vehicle controller for further evaluation. 7. Lichen Sclerosus The patient reports lichen sclerosus as unchanged and bothersome. 8. Rushing's Neuroma The patient has undergone surgery for Rushing's neuroma in the past. 9. Peripheral Neuropathy The patient reports symptoms of peripheral neuropathy, including numbness and coldness in her feet, and is concerned about vascular health. 10. Arterial Disease The patient has a family history of arterial disease and is being referred to a vascular surgeon for evaluation. 11. History Of Smoking The patient has a significant smoking history, having smoked for approximately 50 years before quitting three years ago. 12. Preventative Care: Mammogram And Colonoscopy The patient is scheduled for a mammogram and has been advised to undergo a colonoscopy as part of her preventative care. During the visit, I discussed with the patient the importance of continuing her current medication regimen for anxiety and insomnia, as prescribed by her psychiatrist. We reviewed her blood pressure management and the necessity of potassium supplementation due to her history of hypokalemia. I emphasized the need for regular monitoring of her cholesterol levels and the benefits of pravastatin. We discussed her gastrointestinal symptoms and the referral to a remotely piloted vehicle controller for further evaluation of possible irritable bowel syndrome. I advised her on the importance of vascular health given her family history and referred her to a vascular surgeon for further assessment. Preventative care measures, including scheduling a mammogram and colonoscopy, were also discussed to ensure comprehensive health maintenance. Orders: Orders C Reactive Protein Today Z00.00 - Encounter for general adult medical examination without abnormal findings Liver Panel Today Z00.00 - Encounter for general adult medical examination without abnormal findings TSH reflex Free T4 Today Z00.00 - Encounter for general adult medical examination without abnormal findings Vitamin D 25-OH Total Today Z00.00 - Encounter for general adult medical examination without abnormal findings Magnesium Today Z00.00 - Encounter for general adult medical examination without abnormal findings Hemoglobin A1c Today Z00.00 - Encounter for general adult medical examination without abnormal findings CT lung screening Today Z12.2 - Encounter for screening for malignant neoplasm of respiratory organs, Z87.891 - Personal history of nicotine dependence XR DEXA axial skeleton Today M81.0 - Age-related osteoporosis without current pathological fracture Complete Blood Count Auto Diff Today Z00.00 - Encounter for general adult medical examination without abnormal findings Comprehensive Closter. Panel Fast Today Z00.00 - Encounter for general adult medical examination without abnormal findings Lipid Panel Today Z00.00 - Encounter for general adult medical examination without abnormal findings Vitamin B12 and Folate Today Z00.00 - Encounter for general adult medical examination without abnormal findings Referrals Gastroenterology Referral Z12.11 - Encounter for screening for malignant neoplasm of colon Vascular Surgery Referral I83.819 - Varicose veins of unspecified lower extremity with pain Patient Instructions: - Continue taking medications as prescribed by your psychiatrist for anxiety and insomnia. - Follow your current regimen for blood pressure and potassium supplementation. - Schedule and attend your mammogram and colonoscopy appointments. - Follow up with the remotely piloted vehicle controller for your gastrointestinal symptoms. - Attend the vascular surgeon appointment for evaluation of your vascular health.
[2024-10-07 13:36] VITALS: BP 114/57; PULSE 77; RESP 20; TEMP 36.2; O2SAT 96; BMI 31.5
== END 2024-10-07 14:37 | disposition home or self-care (01) ==
LOC: HO.HMCSH 13:28
PROVIDERS: PCP Internal Medicine; Visit Provider Physician Assistant Medical
DX: I10 Essential (primary) hypertension (principal); F41.9 Anxiety disorder, unspecified; F32.A Depression, unspecified; E78.00 Pure hypercholesterolemia, unspecified; G47.00 Insomnia, unspecified; E87.6 Hypokalemia; Z76.89 Persons encountering health services in other specified circumstances; K58.9 Irritable bowel syndrome, unspecified; I83.813 Varicose veins of bilateral lower extremities with pain; L90.0 Lichen sclerosus et atrophicus; G62.9 Polyneuropathy, unspecified

== ENCOUNTER → 2024-10-07 13:28 | Outpatient (BNVA) | payer MEDICARE, SELFPAY | PROVIDERS: PCP Internal Medicine; Visit Provider Physician Assistant Medical | DX: Z00.00 Encounter for general adult medical examination without abnormal findings (principal); Z76.89 Persons encountering health services in other specified circumstances; F41.9 Anxiety disorder, unspecified; F32.A Depression, unspecified; I10 Essential (primary) hypertension; E78.00 Pure hypercholesterolemia, unspecified; E87.6 Hypokalemia; K58.9 Irritable bowel syndrome, unspecified; G47.00 Insomnia, unspecified; L90.0 Lichen sclerosus et atrophicus; G57.60 Lesion of plantar nerve, unspecified lower limb; G62.9 Polyneuropathy, unspecified; I77.9 Disorder of arteries and arterioles, unspecified; Z87.891 Personal history of nicotine dependence | CPT/HCPCS: 96127; 99202 ==

== ENCOUNTER 2024-12-29 09:21 | Outpatient (AMB) | payer MEDICARE, SELFPAY ==
[2024-12-29 09:39] VITALS: BMI 31.8
--- NOTE | 2024-12-29 09:39 | MHC.OFFVIS ---
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 She reports a long-standing issue with her feet, which has been problematic for many years, and describes her feet as getting extremely cold at night, requiring her to wear socks and slippers even in warm temperatures. The patient also experiences numbness and tingling in her feet, which she associates with neuropathy, a condition she has had since her 30s. The patient has a history of lichen simplex chronicus, which has affected her legs for many years, leading to sores that take six months to a year to heal. She recalls a severe outbreak four years ago when her legs were covered with sores, and she also developed sores on the bottom of her feet. The patient quit smoking nearly three years ago and denies having diabetes. 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 It has been affecting there daily activities including walking. It is noted more so in right leg. Patient denies any previous venous surgery or injections. Patient denies any history of DVT/ PE. Patient denies any history of phlebitis. Trial of compression includes - [id number] They now present for vascular evaluation regarding their varicose veins. [facility] Medical History History of mammogram (~06/07/23) Encounter for preventive care Arterial disease Peripheral neuropathy Rushing's neuroma Lichen sclerosus IBS (irritable bowel syndrome) Hypokalemia Varicose veins with pain History of nicotine use Screening for lung cancer Insomnia Pure hypercholesterolemia, unspecified Hypertension Establishing care with new doctor, encounter for Anxiety and depression Skin rash Family History Father Diabetes Prostate cancer Bone cancer Mother Brain cancer Social History Housing: Apartment Alcohol intake: current Alcohol intake frequency: holidays/special occasions only Alcohol type: hard liquor Patient Tobacco Use Status: Former Tobacco user e-Cigarette/Vaping Use: Currently Using service: No Current occupational status: disabled Cognitive needs: No Hearing needs: No Vision needs: Yes (rx glasses) Review of Systems Const All systems reviewed & are unremarkable except as noted in HPI and below Reports no additional complaints ENT Reports Normal hearing present Card Denies chest pain, Denies chest pain at rest, Denies chest pain with activity and Denies pedal edema Resp Denies cough GI Denies abdominal pain Musc Details: pain over varicosities, aching of lower extremities, swelling, cramping, heaviness and tiredness, itching Denies abnormal gait, Denies muscle cramps and Denies radiating pain into limb Skin/Breast Denies skin ulcer and Denies wounds Neuro Reports Normal hearing present and Denies abnormal gait Psych Reports no additional complaints Physical Exam Vital Signs: BMI result Body Mass Index 31.8 Const General: cooperative, healthy appearing and comfortable Orientation/consciousness: oriented to person, oriented to place and oriented to time HEENT Head: Yes normal to inspection Neck Neck: Yes normal visual inspection Carotids: no bruits Chest Chest palpation & inspection: normal inspection of the chest Resp Effort & Inspection: normal respiratory effort and able to speak in complete sentences Auscultation: clear to auscultation bilaterally, no crackles, no rales, no rhonchi and no wheezes Cardio Other: Palpable dorsalis pedis pulses bilaterally Rate: regular rate Rhythm: regular rhythm Heart sounds: S1 normal heart sound present and S2 normal heart sound present Bruits: no carotid bruits Peripheral pulses: Peripheral pulses 2+ throughout GI Inspection: Yes normal to inspection Skin Other: +2 edema, CEAP Classification C4 - skin color changes Ep - Etiology Primary As - superficial veins P - reflux General skin exam: dry skin Wounds: no wounds Hair: normal Neuro General: oriented to person, oriented to place and oriented to time Cranial nerves: Yes CN's II-XII intact bilaterally and Yes Normal hearing present Cognition (Neuro): normal cognition Motor exam (neuro): 5/5 motor strength present throughout Extrem Other: venous exam: +1-2 2 edema General: No clubbing, No cyanosis and Yes edema Right lower extremity: full ROM, normal capillary refill and edema Left lower extremity: full ROM, normal capillary refill and edema Psych Appearance: grossly normal Mental Status: mental status grossly normal Speech and movement: Normal speech and movement present Assessment & Plan Assessment & Plan (1) Varicose veins of right lower extremity with inflammation: Code(s): I83.11 - Varicose veins of right lower extremity with inflammation Category: Medical Plan: There etiology of lower extremity pain and discomfort. I do believe she does have an element of neuropathy. It does not appear to be arterial disease as she does have palpable pulses. I have taken the liberty of ordering venous insufficiency to rule that out. Should that prove to be negative may require neurologic evaluation. She will follow up with us after venous insufficiency testing. Thank you for allowing us to assist in her care. If there are any questions or concerns please do not hesitate to contact us. Orders: Orders US venous duplex LE BI Today I83.11 - Varicose veins of right lower extremity with inflammation Coding Level of Care Code New Pt Level 4 (19254) Diagnoses Varicose veins of right lower extremity with inflammation I83.11
--- OUTSIDE RECORDS SUMMARY | 2024-12-29 10:28 | XMS_ITS | Clinical Summary ---
Author Organization [facility] Address [address] [address] Phone Care Team Providers Care Events Director Name Role Phone Pcp, Not Required Primary Care Provider Vadim Wang MD Unavailable [phone] Allergies Active Allergy Reactions Criticality Noted Date Comments Bupropion Unknown 05/25/2015 Codeine Other (See Comments) 05/25/2015 Ibuprofen GI Upset 05/25/2015 Ketorolac Tromethamine Other (See Comments) 05/25/2015 CHEST PAIN Naproxen Sodium Other (See Comments) 05/25/2015 NUMBNESS Prochlorperazine Edisylate Other (See Comments) 05/25/2015 Sumatriptan 05/25/2015 SHARP PAINS HEART Tramadol Other (See Comments) 05/25/2015 CHEST PAIN Medications clobetasol (TEMOVATE) 0.05 % ointment Apply 1 application topically 2 (two) times a day. 02/25/20 15 Active mupirocin (BACTROBAN) 2 % ointment Apply topically 2 (two) times a day. PRN rash 22 g 6 04/28/19 16 Active betamethasone valerate 0.1 % ointmentIndication s:Rash and other nonspecific skin eruption APPLY TO HANDS AND FEET ONLY, TWICE A DAY. NOT FOR USE ON FACE. TAPER CONDITION IMPROVES 45 g 3 06/01/19 17 Active betamethasone valerate 0.1 % ointment Apply topically 2 (two) times a day. To affected areas of hands and feet only. Not for use on face. Taper use as condition improves. 45 g 6 06/01/19 17 Active atenolol (TENORMIN) 100 MG tablet Take 100 mg by mouth daily. Active clonazePAM (KLONOPIN) 0.25 MG disintegrating tablet Take 0.25 mg by mouth 2 (two) times a day as needed for anxiety. Active potassium chloride (KLOR-CON) 25 mEq Pack Take by mouth. Activ e cholecalciferol 10 mcg/drop (400 unit/drop) oral drops Take by mouth. Activ e hydroCHLOROthiazid e (HYDRODIURIL) 25 MG tablet Take 25 mg by mouth daily. Active Active Problems No known active problems Family History Medical History Relation Comments Glaucoma Neg Hx Macular degeneration Neg Hx Social History Tobacco Use Types Packs/Day Years Used Date Smoking Tobacco: Some Days Smokeless Tobacco: Never Education Answer Date Recorded Are you interested in more education? Not on addison e 07/20/2022 Are you concerned about learning? Not on file 07/20/2022 No 07/20/2022 No 07/20/2022 Digital Access Answer Date Recorded No 08/20/2022 No 08/20/2022 No 08/20/2022 Reliable internet access at home? Not on file 08/20/2022 Device with a working camera? Not on file Comments Unknown Sex and Gender Information Value Date Recorded Sex Assigned at Not on file Legal Sex Female 10:44 AM EDT Gender Identity Not on file Sexual Orientation Not on file Plan of Treatment Health Maintenance Due Date Last Done Comments Adult Td,Tdap Booster 1952 LIPID PANEL 1952 POTASSIUM LEVEL 1952 DEPRESSION SCREENING 1964 SMOKING Hx and SMOKELESS TOBACCO SCREENING 1965 HEPATITIS C SCREENING 1970 PNEUMOCOCCAL VACCINES (50+ years) (1 of 2 - PCV) 08/20/1971 MAMMOGRAM 1992 COLOGUARD 1997 COLONOSCOPY 1997 COLORECTAL CANCER SCREENING 1997 FIT TEST 1997 FOBT 1997 SIGMOIDOSCOPY 1997 VIRTUAL COLONOSCOPY 1997 ZOSTER VACCINES (1 of 2) 2002 OSTEOPOROSIS SCREENING INITIAL (ONE-TIME) 2017 COVID-19 VACCINE (2 - season) 2023 04/23/2020 INFLUENZA VACCINE (#1) 2024 0, 01/07/2019, 12/17/2017, Additional history exists RSV VACCINE (1 - 1-dose 75+ series) 08/20/2027 HEPATITIS A VACCINES Aged Out No long er eligible based on patient's age to complete this topic HIB VACCINES Aged Out No longer eligi ble based on patient's age to complete this topic MENINGOCOCCAL VACCINES (ACWY) Aged Out No longer eligible based on patient's age to complete this topic MENINGOCOCCAL VACCINES (B) Aged Out N o longer eligible based on patient's age to complete this topic Medical Devices Not on file Insurance MEDICARE PART A & B [employer] CROSS MEDEX SUPPLEMENT MEDICARE PART A & B [employer] MEDEX SUPPLEMENT MEDICARE PART A & B [employer] MEDEX SUPPLEMENT MEDICARE PART A & B [facility] MEDEX SUPPLEMENT MEDICARE PART A & B [employer]OSS MEDEX SUPPLEMENT MEDICARE PART A & B [employer] MEDEX SUPPLEMENT MEDICARE PART A & B [employer] MEDEX SUPPLEMENT MEDICARE PART A & B [employer] MEDEX SUPPLEMENT MEDICARE PART A & B [employer] MEDEX SUPPLEMENT MEDICARE PART A & B [employer] MEDEX SUPPLEMENT MEDICARE PART A & B [facility] MEDEX SUPPLEMENT MEDICARE PART A & B [employer] MEDEX SUPPLEMENT MEDICARE PART A & B [employer] MEDEX SUPPLEMENT MEDICARE PART A & B [employer] MEDEX SUPPLEMENT MEDICARE PART A & B [employer] MEDEX SUPPLEMENT MEDICARE PART A & B [employer] MEDEX SUPPLEMENT MEDICARE PART A & B [employer] MEDEX SUPPLEMENT MEDICARE PART A & B [employer] CROSS MEDEX SUPPLEMENT Care Teams Events Director Relationship Specialty Start Date End Date Pcp, Not Required [address] [place] [id number] PCP - General 02/15/16 Vadim Garcia MD [address] [place] [id number] Internal Medicine 02/15/16 Additional Source Comments The information contained in this document represents components of the legal health record. It is not the complete legal health record.[facility]
== END 2024-12-29 10:19 | disposition home or self-care (01) ==
LOC: HO.HVS 09:21
PROVIDERS: PCP Internal Medicine; Visit Provider Surgery Vascular Surgery
DX: I83.11 Varicose veins of right lower extremity with inflammation (principal)
CPT/HCPCS: 99204

== ENCOUNTER → 2024-12-29 09:21 | Outpatient (BNVA) | payer MEDICARE, SELFPAY | PROVIDERS: PCP Internal Medicine; Visit Provider Surgery Vascular Surgery | DX: M79.671 Pain in right foot (principal); M79.672 Pain in left foot; R20.0 Anesthesia of skin; R20.2 Paresthesia of skin; I83.11 Varicose veins of right lower extremity with inflammation | CPT/HCPCS: 99202 ==

== ENCOUNTER 2025-01-28 08:12 | Outpatient (REF) | payer MEDICARE, SELFPAY ==
--- NOTE | ~2025-01-28 | US_ITS ---
EXAMINATION: US LOWER EXTREMITY VENOUS (REFLUX EXAM), BILATERAL CLINICAL INFORMATION: I 83.11. Varices. COMPARISON: None. TECHNIQUE: Color flow triplex imaging and compression Doppler was performed to evaluate both the deep and the superficial systems bilaterally. To evaluate the superficial system, the examination was performed in the upright position. Color-flow Doppler ultrasound and compression ultrasound were utilized. In addition, maneuvers were utilized to demonstrate reflux. FINDINGS: 1. DEEP VENOUS ULTRASOUND OF THE RIGHT LOWER EXTREMITY: Common Femoral Vein: Compressible, normal respiratory variation and augmented flow. Femoral Vein: Compressible, normal color flow and augmentation. Popliteal Vein: Compressible, normal augmentation. Deep Reflux: There is no evidence of reflux in the deep system in either the common femoral vein, superficial femoral or the popliteal vein. There is no evidence of a Aceves's cyst. 2. SUPERFICIAL ULTRASOUND WITH DOPPLER OF RIGHT LOWER EXTREMITY: GREAT SAPHENOUS VEIN: Saphenofemoral Junction: 0.7 cm; Reflux: 0 ms Proximal Thigh: 0.4 cm; Reflux: 0 ms Mid Thigh: 0.3 cm; Reflux: 0 ms Distal Thigh: 0.4 cm; Reflux: 0 ms At Knee: 0.4 cm; Reflux: 0 ms Proximal Calf: 0.2 cm; Reflux: 0 ms Mid Calf: 0.3 cm; Reflux: 0 ms Distal Calf: 0.3 cm; Reflux: 0 ms DUPLICATED MEDIAL GREAT SAPHENOUS VEIN: Diameter: 0.3 cm. Reflux: NA DUPLICATED LATERAL GREAT SAPHENOUS VEIN: Diameter: None imaged Reflux: NA SMALL SAPHENOUS VEIN: Saphenopopliteal Junction: 0.2 cm; Reflux: 0 ms Proximal: 0.2 cm; Reflux: 0 ms Distal: 0.2 cm; Reflux: 0 ms VEIN OF GIACOMINI: Size: NA Reflux: NA PERFORATORS: Location: Proximal calf. Size: 0.1 cm. Reflux: NA VARICOSITIES: Location: None imaged. Size: NA Reflux: NA 3. DEEP VENOUS ULTRASOUND OF THE LEFT LOWER EXTREMITY: Common Femoral Vein: Compressible, normal respiratory variation and augmented flow. Femoral Vein: Compressible, normal color flow and augmentation. Popliteal Vein: Compressible, normal augmentation. Deep Reflux: There is no evidence of reflux in the deep system in either the common femoral vein, superficial femoral or the popliteal vein. There is no evidence of a Aceves's cyst. 4. SUPERFICIAL ULTRASOUND WITH DOPPLER OF LEFT LOWER EXTREMITY: GREAT SAPHENOUS VEIN: Saphenofemoral Junction: 0.7 cm; Reflux: 0 ms Proximal Thigh: 0.4 cm; Reflux: 0 ms Mid Thigh: 0.4 cm; Reflux: 0 ms Distal Thigh: 0.4 cm; Reflux: 0 ms At Knee: 0.3 cm; Reflux: 0 ms Proximal Calf: 0.3 cm; Reflux: 0 ms Mid Calf: 0.2 cm; Reflux: 0 ms Distal Calf: 0.4 cm; Reflux: 0 ms DUPLICATED MEDIAL GREAT SAPHENOUS VEIN: Diameter: 0.2 cm Reflux: NA DUPLICATED LATERAL GREAT SAPHENOUS VEIN: Diameter: None imaged. Reflux: NA SMALL SAPHENOUS VEIN: Saphenopopliteal Junction: 0.2 cm; Reflux: 0 ms Proximal: 0.3 cm; Reflux: 0 ms Distal: 0.2 cm; Reflux: 0 ms VEIN OF GIACOMINI: Size: NA Reflux: NA PERFORATORS: Location: Proximal calf. Size: 0.3 cm. Reflux: NA VARICOSITIES: Location: None Imaged Size: NA Reflux: NA US/US venous duplex LE BI IMPRESSION: Right: No venous insufficiency. Perforators without reflux, proximal calf. Left: No venous insufficiency. Perforators without reflux, proximal calf. Electronically signed by: Jw Her MD 01/28/2025 09:27 AM DYLAN
--- OUTSIDE RECORDS SUMMARY | 2025-01-28 08:25 | XMS_ITS | Clinical Summary ---
Author Organization [facility] Address [address] [address] Phone Care Team Providers Care Sports Nutritionist Name Role Phone Pcp, Not Required Primary Care Provider Vadim Wang MD Unavailable [phone] Allergies Active Allergy Reactions Criticality Noted Date [...] 2) 2002 OSTEOPOROSIS SCREENING INITIAL (ONE-TIME) 2017 INFLUENZA VACCINE (#1) 2024 0, 01/07/2019, 12/17/2017, Additional history exists COVID-19 VACCINE (2 - season) 2024 04/23/2020 RSV VACCINE (1 - 1-dose 75+ series) [...] file Insurance MEDICARE PART A & B [employer] CROSS MEDEX SUPPLEMENT MEDICARE PART A & B [email or web address] MEDEX SUPPLEMENT MEDICARE PART A & B [email or web address] MEDEX SUPPLEMENT MEDICARE PART A & B [facility] MEDEX SUPPLEMENT MEDICARE PART A & B Member Subscriber Plan / Payer (Ef fective 1991-Present) Name:Dolly Crisostomo Member ID:[id number] Relation to Subscriber:Self Name:Dolly Crisostomo Subscriber ID:[id number] Payer ID:[id number] Group ID:Not on file Type:Medicare Address: [facility] [employer] [facility] [address] [place] [address] [employer] CROSS MEDEX SUPPLEMENT MEDICARE PART A & B [email or web address] MEDEX SUPPLEMENT MEDICARE PART A & B [email or web address] MEDEX SUPPLEMENT MEDICARE PART A & B [email or web address] MEDEX SUPPLEMENT MEDICARE PART A & B [email or web address] MEDEX SUPPLEMENT MEDICARE PART A & B [email or web address] MEDEX SUPPLEMENT MEDICARE PART A & B [facility] MEDEX SUPPLEMENT MEDICARE PART A & B [email or web address] MEDEX SUPPLEMENT MEDICARE PART A & B [email or web address] MEDEX SUPPLEMENT MEDICARE PART A & B [email or web address] MEDEX SUPPLEMENT MEDICARE PART A & B [email or web address] MEDEX SUPPLEMENT MEDICARE PART A & B [email or web address] MEDEX SUPPLEMENT MEDICARE PART A & B [employer] MEDEX SUPPLEMENT MEDICARE PART A & B [employer] CROSS MEDEX SUPPLEMENT Care Teams Sports Nutritionist Relationship Specialty Start Date End Date Pcp, Not Required [address] [place] [id number] PCP - General 02/15/16 Vadim Garcia MD [address] [place] [id number] Internal Medicine 02/15/16 Additional Source Comments The information contained in this document represents components of the legal health record. It is not the complete legal health record.[facility]
== END 2025-01-28 08:13 | disposition home or self-care (01) ==
LOC: HO.US 08:12
PROVIDERS: PCP Internal Medicine; Visit Provider Surgery Vascular Surgery
DX: I83.11 Varicose veins of right lower extremity with inflammation (principal)
CPT/HCPCS: 93970

== ENCOUNTER → 2025-01-28 08:13 | Outpatient (BNV) | payer MEDICARE, SELFPAY | PROVIDERS: PCP Internal Medicine; Visit Provider Radiology Diagnostic Radiology | DX: I83.11 Varicose veins of right lower extremity with inflammation (principal) | CPT/HCPCS: 93970 ==